=== PATIENT | female | born 1955 | race Caucasian/White ===

== ENCOUNTER 2025-01-03 11:45 | Outpatient (CLI) | payer BC, SELFPAY ==
--- NOTE | ~2025-01-03 | US_ITS ---
EXAMINATION: US pelvic complete INDICATION: Postmenopausal bleeding Comparison:No prior studies for comparison. TECHNIQUE: Multiple transabdominal and endovaginal sonographic images of the pelvis performed. FINDINGS: The uterus measures 8.8 x 3.8 x 4.9 cm. There is a small hyperechoic 1.6 cm mass, likely pa rtially calcified fibroid. There is a second 1.3 cm hyperechoic mass also likely partially calcified fibroid. The endometrial complex measures 3.6 mm. The right ovary is not visualized. Left ovary contains follicular changes measuring 2.3 x 4.4 x 1.6 c m. There is no free fluid in the pelvis. There are no abnormal masses seen on either side. IMPRESSION: 1. Hyperechoic masses, largest measuring 1.6 cm within the uterine myometrium, consistent with partia lly calcified fibroids. Reviewed, dictated and finalized at location A. IMPRESSION: 1. Hyperechoic masses, largest measuring 1.6 cm within the uterine myometrium, consistent with partially calcified fibroids.
== END 2025-01-03 11:46 | disposition home or self-care (01) ==
PROVIDERS: PCP Internal Medicine; Visit Provider Obstetrics & Gynecology Gynecology
DX: N95.0 Postmenopausal bleeding (principal)
CPT/HCPCS: 76856

== ENCOUNTER 2025-01-24 02:15 | Day surgery (SDC) | payer BC, SELFPAY ==
[2025-01-14 15:37] VITALS: BMI 25.0
--- NOTE | 2025-01-14 15:56 | PC.NURSE ---
Addendum entered by Chantal Moreno RN 01/17/25 10:08: TYPO/CORRECTION-HOLD ALL VITAMINS/SUPPLEMENTS 3 DAYS PRE-OP, LAST DOSE 01/20/25. PT RELAYS UNDERSTANDING. Original Note: Report to the Outpatient Waiting Room, entrance under the green pavilion located off [facility], at time _7:00AM_ on date__01/24/25_. Planned Procedure Time: _9:00AM__.? Time changes happen often and if your time is changed the preop area will call you the afternoon before. - You and your visitor will be asked to self-screen and do not enter if you have any COVID symptoms. Please call surgeon if you need to reschedule. - A mask is optional within the hospital at this time. Patients may have clear liquids (water, carbonated beverages, clear teas, apple juice) until 3 hours prior to surgery (6:00AM) with a maximum of 20 ounces. - No food from midnight until time of surgery and no smoking, or chewing tobacco (or any form of nicotine). No chewing gum, candy or mints. Take only the following medications with a SIP of water on the morning of surgery: ____AMLODIPINE DO NOT STOP ANY OF YOUR OTHER PRESCRIPTION MEDICATIONS PRIOR TO SURGERY EXCEPT THE FOLLOWING Hold all vitamins and supplements for 3 days per anesthesiologist.-LAST DOSE 01/30/25 Please no make-up, nail ukrainian, hairspray, perfume, deodorant, or body powder the day of surgery.? No jewelry (including any body piercings) or valuables the day of surgery, leave them at home.? Please take a shower or bath the night before, or the morning of, surgery with an antibacterial soap.? Wear comfortable, loose fitting clothing.? - Jewelry must be removed prior to entering the operating room.? Rings and piercings that are not removed may be cut off. - The hospital will not accept responsibility for valuables.? - Please leave all valuables, including medications, at home the day of surgery. If you are going home after surgery, a licensed day haul or farm charter bus driver must drive you home.? - NO public transportation without another adult if you receive anesthesia. - We recommend that an adult stay with you for 24 hours following discharge. - We also recommend that you do not drive, make important decision, drink alcoholic beverages, or take any drugs that were not prescribed by your health care provider for at least 24 hours after your discharge time. Follow any additional instructions given to you from your surgeon. Telephone instructions given to PATIENT and asked if any additional questions and then verbalized understanding. Patient advised to call surgeon office or pre surgery nurse liaison [phone] if any additional questions.
[2025-01-24] VITALS (10 sets, daily range): BP systolic 73–133; BP diastolic 32–60; PULSE 40–60; RESP 14; TEMP 36.7; O2SAT 96–100; BMI 25.1
--- OUTSIDE RECORDS SUMMARY | 2025-01-24 02:19 | XMS_ITS | Encounter Summary ---
Author Organization [facility] Address 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
--- OUTSIDE RECORDS SUMMARY | 2025-01-24 02:19 | XMS_ITS | Encounter Summary ---
Author Organization [facility] Address [address] [place] [address] Care Team Providers Care Blacksmith Helper Name Role Phone Charlette Madrigal MD Primary Care Provider [phone] Page Ge MD Unavailable [phone] Elif Cooper MA Unavailable + [phone] Shawn Patel MD Unavailable [phone] Lux Valiente OD Unavailable [phone] Jose Alberto Max MD Unavailable [phone] Encounter Details Date Type Department Care Team (Late st Contact Info) Description 04/28/2024 Orders Only [facility] Health Information Management [address] [place] [id number] Scanning, Provider Social History Tobacco Use Types Packs/Day Years Used Date Smoking Tobacco: Never Passive Smoke Exposure: Never Smokeless Tobacco: Never AUDIT-C Answer Date Recorded Q1: How often do you have a drink containing alcohol? Never 05/12/2023 Q2: How many drinks containi ng alcohol do you have on a typical day when you are drinking? Patient does not drink Q3: How often do you have si x or more drinks on one occasion? 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, teaching Not on file Not on file Not on fi le documented as of this encounter Plan of Treatment Not on file documented as of this encounter Procedures Procedure Name Priority Date/Time Associated Diagnosis Comments SCAN - LABS 04/28/2024 documented in this encounter Results * SCAN - LABS (04/28/2024) us Provider Scanning Final Result documented in this encounter Visit Diagnoses Not on filedocumented in this encounter Care Teams Blacksmith Helper Relationship Specialty Start Date End Date Charlette Madrigal MD [address] [address] PCP - General Internal Medicine 07/04/22 Page Ge MD [address] [id number] Referring Physician Gynecology 07/04/22 Elif Cooper MA [address] [place] [address] Audiology 07/04/22 Shawn Patel MD [address] [place] [address] Referring Physician Dermatology 07/04/22 Lux Valiente OD [address] [place] [address] Ophthalmology 07/04/22 Jose Alberto Max MD [address] [place] [address] Referring Physician Ophthalmology 12/09/22 documented as of this encounter
--- OUTSIDE RECORDS SUMMARY | 2025-01-24 02:19 | XMS_ITS | Clinical Summary ---
Author Organization [facility] Address [address] [place] [address] Phone Care Team Providers Care Manager Medicare Marketing Name Role Phone Nancy Madrigal MD Primary Care Provider [phone] Page Ge MD Unavailable [phone] Elif Cooper MA Unavailable [phone] Shawn Patel MD Unavailable Lux Valiente OD Unavailable Brown Max MD Unavailable [phone] Allergies Active Allergy Reactions Criticality Noted Date Comments Adhesive Rash Medium 07/06/2024 medipore Latex Hives Medium 10/21/2021 Tramadol Stomach upset Low 07/04/2022 Medications aspirin 81 mg enteric coated tablet Take 1 tablet (81 mg total) by mouth every other day Active estradioL (ESTRACE) 0.5 mg tablet Take 1 tablet (0.5 mg total) by mouth daily 07/21/19 22 Active medroxyPROGESTE Mike (PROVERA) 2.5 mg tablet Take 1 tablet (2.5 mg total) by mouth daily 07/21/19 22 Active nitroglycerin (NITROSTAT) 0.[address] 1 tablet (0.4 mg total) under the tongue every 5 (five) minutes as needed 10/23/19 Active valACYclovir (VALTREX) 500 mg tabletIndicatio ns:Chronic Suppression Take 1 tablet (500 mg total) by mouth daily 09/05/19 Active UNABLE TO FIND Pectasol Activ e UNABLE TO FIND Bone up Activ e cholecalciferol (Vitamin D3) 5,000 unit tablet daily Active ascorbic acid (VITAMIN C) 250 mg tablet Take 1 tablet (250 mg total) by mouth daily Active acidophilus-pec tin, citrus 100 million cell-10 mg capsule Take by mouth Active coenzyme Q10 100 mg capsule Take 1 capsule (100 mg total) by mouth daily Active calcium carb,gluc-mag gluc,ox 500 mg calcium- 250 mg tablet Take by mouth Active atorvastatin (LIPITOR) 10 mg tabletIndicatio ns:Hypercholest erolemia Take 1/2 (one-half) tablet by mouth once daily 45 tablet 2 08/09/19 25 Active amLODIPine (NORVASC) 5 mg tabletIndicatio ns:Hypertension , essential Take 1 tablet by mouth once daily 90 tablet 2 08/09/19 25 Active telmisartan (MICARDIS) 20 mg tabletIndicatio ns:Hypertension , essential Take 1 tablet (20 mg total) by mouth daily 90 tablet 3 01/18/20 25 026 Active Linzess 145 mcg capsule Take 1 capsule (145 mcg total) by mouth daily 06/03/20 22 025 Discontinued(Th erapy completed) estradioL (ESTRACE) 0.01 % (0.1 mg/gram) vaginal cream INSERT 1 GRAM VAGINALLY 2 TIMES PER WEEK 03/22/20 24 025 Discontinued Active Problems Problem Noted Date Diagnosed Date Endometrial thickening on ultrasound 01/17/2025 Assessment & Plan (01/17/2025 4:19 PM CDT): Waiting on scheduled D and C 01/24/[address] Ge Has 2 fibroids on US, read report from [facility] Prinzmetal angina 01/17/2025 Overview (01/17/2025): Cardiac CT score 0.0 in 2022 EKG 06/2024 Assessment & Plan (01/17/2025 4:25 PM CDT): Cardiac CT score 0.0 in 2022 EKG 06/2024 Cont amlodipine therapy Stress induced only Colon cancer screening 07/07/2024 Screening for colon cancer 05/20/2024 Decreased renal function 05/19/2024 Assessment & Plan (05/19/2024 9:56 AM FURNITURE RESTORER): Lowering GFR, new problem Normal UA no proteinuria Check cystatin c Recurrent genital HSV (herpes simplex virus) inf ection 12/09/2022 Overview (12/09/2022): Recurrent genital flare-ups when under stress mostly or sleep deprived. Previously prescription was managed by her welfare centre manager would like for me to take over. Assessment & Plan (12/09/2022 6:59 PM CDT): Previously prescription was managed by her welfare centre manager would like me to take over. Valtrex prn, takes 500 mg daily prophylaxis. Patient can take 500 mg t.i.d. for 3-5 days p.r.n. flare-ups. Stable Annual physical exam 07/11/2022 Assessment & Plan (05/19/2024 9:48 AM FURNITURE RESTORER): Wear seatbelts. Use sunscreen. Discussed healthy diet and disease prevention. Recommend moving towards a plant based diet. Discussed importance of scheduling recommended screening tests. Discussed importance of regular physical examinations for health maintenance. Discussed importance of a living will, advanced directives and establishing or updating healthcare power of insurance defense attorney document and providing our office with a copy. Assessment & Plan (05/11/2023 9:54 PM FURNITURE RESTORER): Wear seatbelts. Use sunscreen. Discussed healthy diet and disease prevention. Recommend moving towards a plant based diet. Discussed importance of scheduling recommended screening tests. Discussed importance of regular physical examinations for health maintenance. Discussed importance of a living will, advanced directives and establishing or updating healthcare power of insurance defense attorney document and providing our office with a copy. Assessment & Plan (07/11/2022 9:51 AM FURNITURE RESTORER): prevnar 20 due, given today Annual labs due Reviewed previous labs and diagnostic test results. Chronic medical problems evaluated and management plans discussed with the patient. Prescription medications, supplements, vitamins and immunizations reviewed. Wear seatbelts. Use sunscreen. Discussed healthy diet and disease prevention. Recommend moving towards a plant based diet. Discussed importance of scheduling recommended screening tests. Discussed importance of regular physical examinations for health maintenance. Discussed importance of a living will, advanced directives and establishing or updating healthcare power of insurance defense attorney document and providing our office with a copy. Mixed conductive and sensorineural hearing loss 07/07/2022 Overview (07/07/2022): bilat hearing aids Hypercholesterolemia 07/04/2022 Overview (07/04/2022): Statin therapy Assessment & Plan (05/19/2024 9:59 AM FURNITURE RESTORER): At goal with only 5 mg of atorvastatin daily Cont heart healthy diet Controlled. Assessment & Plan (12/09/2022 3:56 PM CDT): Follow step 1 low cholesterol diet/ Mediterranean Diet. Report if having problems with daily nausea or extreme muscle aches and weaknesses from the chol medication Monitor lipid levels on a regular basis as discussed and planned. Recommend to continue with current Rx medication to lower and control cholesterol Controlled. Assessment & Plan (07/07/2022 10:53 AM FURNITURE RESTORER): Cont statin therapy Ff low chol diet Exercise for cv health Monitor lipids, alt, cpk Hypertension, essential 07/04/2022 Overview (01/17/2025): Cardiac CT score 0.0 in 2022 EKG 06/2024 Assessment & Plan (01/17/2025 4:13 PM CDT): BP been fluctuating some Cont to monitor BP High calcium diet should help her BP she is taking BP amlodipine 5 mg daily Add telmisartan low dose once daily Add more activity, walk 20 mins 3x a week for better BP regulation Avoid etoh, rarely drinks at this time Assessment & Plan (05/19/2024 9:58 AM FURNITURE RESTORER): Bp now well controlled Only needing 5mg amlodpine daily Cont rx med Remain off asa therapy no benefit cardiac CT score is 0% Follow low sodium DASH Diet. Cont to Exercise regularly for CV health and weight loss. Achieve or Maintain normal BMI/Weight. Continue Rx medication. BP is controlled and stable. Assessment & Plan (12/09/2022 3:56 PM CDT): Bp now well controlled Only needing 5mg amlodpine daily Cont rx med Stop the asa therapy no benefit cardiac CT score is 0% Follow low sodium DASH Diet. Cont to Exercise regularly for CV health and weight loss. Achieve or Maintain normal BMI/Weight. Continue Rx medication. BP is controlled and stable. Assessment & Plan (07/07/2022 10:53 AM FURNITURE RESTORER): New onset bp retaken here elevated Concerning for signs of heart dse, at risk for stroke Start amlodipine 2.5 mg daily Cont to monitor BP bid Start to Exercise regularly Follow low sodium DASH Diet. Exercise regularly for CV health Maintain normal BMI/Weight. Report if BP consistently over 160/90 or under 90/60 and dizzy and LH. Rosacea 07/04/2022 Overview (07/04/2022): Dr Lockwood Sacro-iliac pain 07/04/2022 Overview (01/17/2025): Tried chiro and meds Resolved after PT and dry needling 2023 Assessment & Plan (05/19/2024 10:15 AM FURNITURE RESTORER): Resolved after PT and needling 2023 Assessment & Plan (12/09/2022 4:04 PM CDT): Flaring up more lately been ongoing for over 1 yr Stretching helps Needs PT likely L spine and pelvis xray attn SI jt Assessment & Plan (07/07/2022 10:54 AM FURNITURE RESTORER): Right side Plans to do exercises and stretching Cont Michael and Lobito exercises on You-tube Call if worsens for PT referral Chronic idiopathic constipation 07/04/2022 Overview (12/09/2022): Previously managed by her welfare centre manager. Patient would like me to take over prescription for Linzess therapy Assessment & Plan (05/19/2024 10:16 AM FURNITURE RESTORER): Cont linzess therapy prn helping Hydrate well Avoid straining due to cystocele and rectocoele Cont High-fiber diet. Assessment & Plan (12/09/2022 6:58 PM CDT): Previously managed by her welfare centre manager. Patient would like me to take over prescription for the Linzess therapy. Cont linzess therapy helping Hydrate well Avoid straining due to cystocele and rectocoele High-fiber diet. Assessment & Plan (07/04/2022 10:51 AM FURNITURE RESTORER): Doing better on linzess therapy Hydrate well Cont same regimen Cystocele with rectocele 07/04/2022 Overview (05/19/2024): Dr Ge OVEN TECHNICIAN Doing Kegels Assessment & Plan (12/09/2022 7:00 PM CDT): Currently has a knob pessary in place. Helping. Continue under welfare centre manager care. Assessment & Plan (05/19/2024 9:51 AM FURNITURE RESTORER): >>ASSESSMENT AND PLAN FOR CYSTOCELE WITH RECTOCELE WRITTEN ON 07/04/2022 10:49 AM BY NANCY MADRIGAL MD Stable Cont to wear a pad Cont linzess Avoid constipation and straining Continue Pelvic floor exercises >>ASSESSMENT AND PLAN FOR RECTOCELE WRITTEN ON 07/04/2022 10:48 AM BY NANCY MADRIGAL MD Cont linzess Avoid constipation and straining Continue Pelvic floor exercises Benign essential tremor 07/04/2022 Overview (05/19/2024): Observation famhx father and sister with same May benefit from Focused Ultrasound wave treatment to brain Assessment & Plan (05/19/2024 10:00 AM FURNITURE RESTORER): May benefit from Focused Ultrasound wave treatment [facility] at [facility] if worsens for tremor non parkinson's Assessment & Plan (07/07/2022 10:52 AM FURNITURE RESTORER): Managing well, R hand Not on meds at this time Wants to observe for now, machohx, father Resolved Problems Problem Noted Date Diagnosed Date Resolved Date Chest pain 10/21/2021 07/04/2022 Encounters Date Type Department Care Team Description 01/17/2025 3:00 PM CDT Office Visit [facility] [address] [place] [phone] Nancy Madrigal MD Hypertension, essential (Primary Dx); Endometrial thickening on ultrasound; Prinzmetal angina 01/03/2025 Orders Only [facility] Health Information Management [address] [place] [address] Scanning, Provider 12/29/2024 Telephone [facility] [address] [place] [phone] Nancy Madrigal MD Medical Question/Miscellaneo us 11/26/2024 Telephone [facility] [address] [place] [phone] Nancy Madrigal MD 10/25/2024 Telephone [facility] [address] [place] [phone] Nancy Madrigal MD Referral Request 10/25/2024 Telephone [facility] [address] [place] [phone] Nancy Madrigal MD Additional Services Or Orders from Last 3 Months Immunizations Immunization Administration Dates Next Due Influenza, Quadrivalent, Beatris l Culture-based MDCK, Preservative Free, Antibiotic Free, Intramuscular 03/19/2018 Influenza, Quadrivalent, Hig h Dose, Preservative Free, Intrr 02/04/2023,02/04/2022,04/10/2021,04/03,03/29/2020 Influenza, Quadrivalent, Spl it, Preservative Free, Intramuscular 02/05/2017 Influenza, Trivalent, High D ose, Split, Preservative Free, Intramuscular 02/12/2024 Pneumococcal Conjugate PCV 13 04/03/2020 Pneumococcal Conjugate Pcv20 07/04/2022 Tdap 12/09/2022 ZOSTER LIVE 02/05/2017 ZOSTER Recombinant 04/29/2023,02/04/2023 Surgical History Surgery Date Site/Laterality Comments STAPEDECTOMY Bilateral 1 left , [address] Bimal Kidd Left Ear CHOLECYSTECTOMY 06/16/1999 - 06/15/2000 Dr De Leon CATARACT EXTRACTION EXTRACAPSULAR W/ INTRAOCULAR LENS IMPLANTATION 12/10/[address] Max, 12/10/2022 OS, 12/24/2022 OD VAGINAL DELIVERY X1 DILATION AND CURETTAGE OF UTERUS 06/16/2012 - 06/15/2013 Dr Johnson Medical History Medical History Date Comments Angina at rest resolved- no vandana ronaldo ongoing Hyperlipidemia Sacro-iliac pain 07/04/2022 Tried chiro and meds Resolved after PT and needling 2023 Chronic constipation Hypertension Rectocele second degree Family History Medical History Relation Name Comments Kidney cancer Brother Cirrhosis Father Essential Tremor Father Prostate cancer Maternal Grandmother Lung cancer Mother Breast cancer Mother's Sister Essential Tremor Sister Relation Name Status Comments Brother Alive Father Maternal Grandmother Alive Mother Mother's Sister Alive Sister Alive Social History Tobacco Use Types Packs/Day Years Used Date Smoking Tobacco: Never Passive Smoke Exposure: Never Smokeless Tobacco: Never Tobacco Cessation:Counseling Given: Not Answered AUDIT-C Answer Date Recorded Q1: How often do you have a drink containing alcohol? Monthly or less 07/07/2024 Q2: How many drinks containi ng alcohol do you have on a typical day when you are drinking? Patient does not drink Q3: How often do you have si x or more drinks on one occasion? Never 07/07/2024 PHQ-2 Answer Date Recorded PHQ-2 Total Score (If total score is 3 or more points, staff should administer the PHQ-9) 0 01/17/2025 PHQ-9 Answer Date Recorded PHQ-9 Total Score 1 05/19/2024 Personal Safety Answer Date Recorded Have you ever been in or are you currently in a harmful physical or emotional relationship or is someone making you feel afraid or unsafe? 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, teaching Not on file Not on file Not on fi le Obstetrics History Last Filed Vital Signs Vital Sign Reading Time Taken Comments Blood Pressure 124/64 01/17/2025 3:01 PM CDT Pulse 60 01/17/2025 3:01 PM CDT Temperature 36.4 C (97.5 F) 01/17/2025 3:01 PM CDT Respiratory Rate 16 07/07/2024 12:4 5 PM FURNITURE RESTORER Oxygen Saturation 99% 01/17/2025 3:01 PM CDT Inhaled Oxygen Concentration - - Weight 64.8 kg (142 lb 12.8 oz) 01/17/2025 3:01 PM CDT Height 160 cm (5' 3) 01/17/2025 3:01 PM CDT Body Mass Index 25.3 01/17/2025 3:01 PM CDT Plan of Treatment Health Maintenance Due Date Last Done Comments Hepatitis B Screening 1973 Covid-19 Vaccine (2023-07 5 season) 2024 02/12/2024, 03/14/2023, 03/04/2022, Additional history exists Influenza Vaccine (#1) 2025 , 02/04/2023, 02/04/2022, Additional history exists Well Visit 65+ 05/19/2025 05/19/2024, 04/17, 07/04/2022 Fall Risk Assessment 07/07/2025 07/07/2024, 05/19/2024, 05/12/2023, Additional history exists Breast Cancer Screening-Mammogram 11/26/2025 11/26/2024, 11/10/2024, 11/10/2024, Additional history exists Depression Screening 01/17/2026 01/17/2025, 05/19/2024, 05/19/2024, Additional history exists Osteoporosis Screening-Bone Density Scan 12/19/2026 12/19/2021, 03/29/2015 DTaP/Tdap/Td Vaccine (2 - Td or Tdap) 12/09/2032 12/09/2022 Colon Cancer Screening-Colonoscopy 07/07/2034 07/07/2024, 12/02/2014 Hepatitis C Screening Completed 07/04/2022 Pneumococcal vaccine 65+ Completed 07/04/2022, 03/16 Zoster Vaccine Completed 04/29/2023, 01/15, 02/05/2017 Colon Cancer Screening-CT Colonography Discontinued 07/07/2024, 12/02/2014 Colon Cancer Screening-DNA Stool Discontinued 07/07/19, 12/02/2014 Colon Cancer Screening-FIT Discontinued 07/07/2024, Colon Cancer Screening-Sigmoidoscopy Discontinued 07/07/2024, 12/02/2014 Medical Devices Implanted Type Area Face Man Device Identifier Shelf Expiration Date Model / Serial / Lot Stapedectomy Bilateral: Ear Procedures Procedure Name Priority Date/Time Associated Diagnosis Comments SCAN - RADIOLOGY/IMAGING 01/03/2025 MAMMOGRAPHY Routine 11/26/2024 2:17 PM CDT COLONOSCOPY 07/07/2024 11:46 AM FURNITURE RESTORER HEPATITIS C ANTIBODY Routine 07/04/2022 1:02 PM FURNITURE RESTORER DEXA AXIAL SKELETON BONE DENSITY 1 OR MORE SITES Routine 03/29/2015 1:31 PM CDT from Last 3 Months or Most Recently Relevant to Health Maintenance Results * SCAN - RADIOLOGY/IMAGING (01/03/2025) Anatomical Region Laterality Modality Other us Provider Scanning Final Result * MAMMOGRAPHY (11/26/2024 2:17 PM CDT) Mammography Normal [facility] Provider MD HEALTH MAINTENANCE Final Result * Colonoscopy (07/07/2024 11:46 AM FURNITURE RESTORER) Anatomical Region Laterality Modality Other Narrative Procedure Note Neri Reynoso MD - 07/07/2024 11:46 AM CST [facility] GI ENDOSCOPY Patient Name: Ayanna Beltran Procedure Date: 07/07/2024 11:46 AM Date of : 1955 Admit Type: Outpatient Age: 69 Gender: Female Attending MD: Neri Reynoso MD Room: [facility] ENDOSCOPY ROOM 05 Note Status: Finalized Procedure: Colonoscopy Indications: Screening for colorectal malignant neoplasm,average risk Referring MD: Providers: Neri Reynoso MD Medicines: See the Anesthesia note for documentation of the administered medications Complications: No immediate complications. Estimated Blood Loss: Estimated blood loss was minimal. Procedure: Pre-Anesthesia Assessment: - Prior to the procedure, a History and Physicalwas performed, and patient medications and allergieswere reviewed. The risks and benefits of the procedureand the sedation options and risks were discussed withthe patient. All questions were answered and informed consent was obtained. Patient identification and proposed procedure were verified. After reviewingthe risks and benefits, the patient was deemed in satisfactory condition to undergo the procedure.The anesthesia plan was to use monitored anesthesiacare (MAC). Immediately prior to administration of medications, the patient was re-assessed foradequacy to receive sedatives. The heart rate, respiratory rate, oxygen saturations, blood pressure, adequacyof pulmonary ventilation, and response to care were monitored throughout the procedure. The physical status of the patient was re-assessed after the procedure. The benefits, risks and alternatives of theprocedure and sedation were discussed and informed consentwas obtained. All questions were answered. Please referto the signed informed consent document in the medical record. The scope was passed under direct vision.The [id number]-[id number] colonoscope was introduced through theanus and advanced to the cecum, identified byappendiceal orifice and ileocecal valve. The colonoscopy was performed without difficulty. The patient tolerated the procedure well. The quality of the bowel preparation was good. Scope insertion time was 8 minutes. Scope withdrawal time was 14 minutes. Prep was administered in a split dose. Findings: The perianal and digital rectal examinations were normal. Mild diverticulosis was found in the sigmoid colon. Internal hemorrhoids were found. The hemorrhoids were small. Impression: - Diverticulosis in the sigmoid colon. - Internal hemorrhoids. - No specimens collected. Recommendation: - Resume previous diet today. - Discharge patient to home. - Increase fiber. - Patient has a contact number available for emergencies. The signs and symptoms of potential delayed complications were discussed with thepatient. Return to normal activities tomorrow. Written discharge instructions were provided to thepatient. - Repeat colonoscopy in 10 years for screening purposes. - I would be happy to see you in my GI clinic ifyou have further questions or concerns or if symptoms progress Neri Reynoso MD 07/07/2024 12:24:56 PM Number of Addenda: 0 Note Initiated On: 07/07/2024 11:46 AM Recognized by the [employer] for promoting quality in endoscopy us Neri Reynoso MD ENDOSCOPY PROCEDURES [place] Result * Hepatitis C antibody (07/04/2022 1:02 PM FURNITURE RESTORER) Hep C Ab <0.1 0.0 - 0.9 s/co ratio [facility] - Comment: Negative: < 0.8 Indeterminate: 0.8 - 0.9 Positive: > 0.9 HCV antibody alone does not differentiate between previous resolved infection and active infection. The CDC and current clinical guidelines recommend that a positive HCV antibody result be followed up with an HCV RNA test to support the diagnosis of acute HCV infection. [facility] offers Hepatitis C Virus (HCV) RNA, Diagnosis, NILES (049702) and Hepatitis C Virus (HCV) Antibody with reflex to Quantitative Real-time PCR ([id number]). 07/04/2022 1:02 PM FURNITURE RESTORER 07/04/2022 Narrative [facility] - 07/05/2022 7:36 AM FURNITURE RESTORER Performed at: - [address] [id number] Break Off Worker: Ismael Garrido PhD, Phone: [phone] us Nancy Madrigal MD LAB MICROBIOLOGY - GENERAL O RDERABLES Final Result [facility] - * Dexa Axial Skeleton Bone Density 1 or 2 Site (03/29/2015 1:31 PM CDT) Anatomical Region Laterality Modality Body N/A Radiographic Lexus ging 03/29/2015 1:31 PM CDT Impressions 03/29/2015 2:40 PM CDT Normal bone mineral density. Bone mineral density: Normal (T-score above or = -1.0) Low bone mass (T-score between -1.0 and -2.5) replaces the previously used term osteopenia Osteoporosis (T-score = or below -2.5) Medical evaluation for secondary causes of low bone mineral density may be appropriate. FRAX is a World Health Organization validated fracture risk assessment tool that calculates a person's 10 year probability of a major osteoporosis related fracture and hip fracture. According to the National Osteoporosis Foundation guidelines, postmenopausal women and men age 50 or older with low bone mass and a 10 year probability of a major osteoporosis related fracture = or greater than 20% or a 10 year probability of a hip fracture = or greater than 3% should be considered for treatment. For further information, including treatment recommendations, please refer to the 2013 ISCD Official Positions (http://www.iscd.org) and the NOF's Clinician's Guide to Prevention and Treatment of Osteoporosis (http://www.nof.org/professionals/clinical-guidelines) THIS IS AN ELECTRONICALLY VERIFIED REPORT 03/29/2015 2:36 PM: Torin Schofield M.D. Torin Schofield M.D. NH:david 02:36 PM 02:36 PM [facility] [EOD] Narrative 03/29/2015 2:40 PM CDT HISTORY: 60 year old postmenopausal female. Current Height: 62.5 inches Maximum Height: 63 inches Weight: 138 pounds RISK FACTORS: History of finger fracture as an adult. She has taken hormone-replacement therapy, multivitamin, vitamin D and calcium. She does not regularly perform weightbearing exercise. She regularly consumes dairy products and caffeinated beverages. COMPARISON(S): None HOTEL SERVICES SUPERVISOR/MODEL: [employer] (S/N [id number]) FINDINGS: AP lumbar spine L1-L4 Total BMD is 0.997 g/kd8P-wobkf is -0.5 Left Hip Total BMD is 0.927 g/po0G-gfmyt is -0.1 Neck BMD is 0.762 g/mf2P-xqeao is -0.8 Procedure Note Provider, MD Katrin - 11/01/2020 HISTORY: 60 year old postmenopausal female. Current Height: 62.5 inches Maximum Height: 63 inches Weight: 138 pounds RISK FACTORS: History of finger fracture as an adult. She has taken hormone-replacement therapy, multivitamin, vitamin D and calcium. Shedoes not regularly perform weightbearing exercise. She regularly consumesdairy products and caffeinated beverages. COMPARISON(S): None HOTEL SERVICES SUPERVISOR/MODEL: [employer] (S/N [id number]) FINDINGS: AP lumbar spine L1-L4 Total BMD is 0.997 g/cv5T-wbeoc is -0.5 Left Hip Total BMD is 0.927 g/gh6O-iumlv is -0.1 Neck BMD is 0.762 g/dh3H-vfqru is -0.8 IMPRESSION: Normal bone mineral density. Bone mineral density: Normal (T-score above or = -1.0) Low bone mass (T-score between -1.0 and -2.5) replaces the previously used term osteopenia Osteoporosis (T-score = or below -2.5) Medical evaluation for secondary causes of low bone mineral density may be appropriate. FRAX is a World Health Organization validated fracture risk assessmenttool that calculates a person's 10 year probability of a major osteoporosisrelated fracture and hip fracture. According to the National OsteoporosisFoundation guidelines, postmenopausal women and men age 50 or older with low bonemass and a 10 year probability of a major osteoporosis related fracture = or greater than 20% or a 10 year probability of a hip fracture = or greaterthan 3% should be considered for treatment. For further information, including treatment recommendations, please referto the 2013 ISCD Official Positions (http://www.iscd.org) and the NOF's Clinician's Guide to Prevention and Treatment of Osteoporosis (http://www.nof.org/professionals/clinical-guidelines) THIS IS AN ELECTRONICALLY VERIFIED REPORT 03/29/2015 2:36 PM: Torin Schofield M.D. Torin Schofield M.D. NH:david 02:36 PM 02:36 PM BM [EOD] Kenji Johnson MD IMG DXA PROCEDURES Final Re sult from Last 3 Months or Most Recently Relevant to Health Maintenance Insurance BCBS FEDERAL Member Subscriber Plan / Payer (Ef fective 2013-Present) Name:Ayanna Beltran Relation to Subscriber:Spouse Name:BROWN BELTRAN Date of :1966 Address: [address] [place] [address] Payer ID:[id number] (NAIC) Group ID:[id number] Type:[facility] Address: [address] [place] [id number] MEDICARE Care Teams Manager Medicare Marketing Relationship Specialty Start Date End Date Nancy Madrigal MD [address] [place] [id number] PCP - General Internal Medicine 07/04/22 Page Ge MD [address] [place] [address] Referring Physician Gynecology 07/04/22 Elif Cooper MA [address] [place] [address] Audiology 07/04/22 Shawn Patel MD [address] [address] Referring Physician Dermatology 07/04/22 Lux Valiente OD [address] [place] [address] Ophthalmology 07/04/22 Brown Max MD [address] [place] [address] Referring Physician Ophthalmology 12/09/22
--- OUTSIDE RECORDS SUMMARY | 2025-01-24 02:19 | XMS_ITS | Clinical Summary ---
Author Organization [facility] Address [address] [place] [address] Care Team Providers Care Resident Programs Assistant Name Role Phone Charlette Madrigal MD Primary Care Provider [phone] Allergies Active Allergy Reactions Criticality Noted Date Comments Latex Hives 10/21/2021 Medications estradiol 0.5 MG tablet Take 0.5 mg by mouth nightly at bedtime. 2 Active medroxyPROGESTE Mike 2.5 MG tablet Take 2.5 mg by mouth nightly at bedtime. 2 Active valACYclovir 500 MG tablet Take 500 mg by mouth nightly at bedtime. 2 Active atorvastatin 10 MG tablet Take 5 mg by mouth nightly at bedtime. Active aspirin EC (ASPIRIN EC) 81 MG tablet Take 81 mg by mouth every other day. Takes in evening every other day Active Multiple Vitamins-Minera ls (MULTIVITAMIN ADULT, MINERALS, OR) Take 1 tablet by mouth daily. Active nitroglycerin 0.[address] 1 tablet (0.4 mg total) under the tongue every 5 (five) minutes as needed for Chest Pain. Take up to 3 in one setting. After two doses, if pain still persists, go to Emergency room 90 tablet 2 Active Active Problems Problem Noted Date Diagnosed Date Chest pain 10/21/2021 Encounters Date Type Department Care Team Description 11/10/2024 12:20 PM CDT - 11/10/2024 11:59 PM CDT Hospital Encounter [facility] [address] [place] [address] Page Ge MD Discharge Disposition: Home or Self Care (Routine Discharge) 11/10/2024 Travel from Last 3 Months Immunizations Immunization Administration Dates Next Due MODERNA COVID-19 (12+) MRNA, LNP-S, PF, 100 MCG/ 0.5 ML DOSE 09/01/2020,08/04/2020 Family History Medical History Relation Comments Breast Cancer Other Breast Cancer Paternal Aunt Relation Status Comments Other Alive Paternal Aunt Social History Tobacco Use Types Packs/Day Years Used Date Smoking Tobacco: Never Smokeless Tobacco: Never Alcohol Use Standard Drinks/Week Comments Never 0 (1 standard drink = 0.6 oz pur e alcohol) Comments No Sex and Gender Information Value Date Recorded Sex Assigned at 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 Sex Female 9:54 AM CDT Gender Identity Not on file Sexual Orientation Not on file Last Filed Vital Signs Vital Sign Reading Time Taken Comments Blood Pressure 127/62 10/22/2021 7:20 AM CDT Pulse 55 10/22/2021 7:20 AM CDT Temperature 36.6 C (97.9 F) 10/22/2021 7:20 AM CDT Respiratory Rate 14 10/22/2021 7:20 AM CDT Oxygen Saturation 98% 10/22/2021 7:20 AM CDT Inhaled Oxygen Concentration - - Weight 63.9 kg (140 lb 12.8 oz) 10/22/2021 3:33 AM CDT Height 160 cm (5' 3) 10/21/2021 8:26 AM CDT Body Mass Index 24.94 10/21/2021 8:26 AM CDT Plan of Treatment Health Maintenance Due Date Last Done Comments Colorectal Cancer Screening Colonoscopy (10 Years) 1955 Hepatitis C 1973 RSV Immunization or 60+ Years (1 - Risk 60-74 years 1-dose series) 2015 COVID-19 Vaccine ( season) 2024 09/01/2020, 08/04/2020 Mammogram Screening 11/10/2026 11/10/2024, 10/29/2023, 08/16/2022, Additional history exists DTaP, Tdap and Td Vaccines (2 - Td or Tdap) 12/09/2032 12/09/2022 Dexa Scan (General) Completed 12/19/2021, 5 Pneumococcal Vaccine: 50+ Years Completed 07/04/2022, 04/03/2020 Zoster Vaccines Completed 04/29/2023, 01/15, 02/05/2017 Meningococcal B Vaccine Aged Out No l onger eligible based on patient's age to complete this topic Meningococcal Vaccine Aged Out No vandana ronaldo eligible based on patient's age to complete this topic RSV Immunizations Under 20 Months Aged Out No longer eligible based on patient's age to complete this topic Goals Goal Patient Goal Type Associated Problems Recent Progress Patient-Stated? Author Patient will return to prior living situation and remain independent in ADLs upon discharge from hospital General Bel Sarmiento RN Procedures Procedure Name Priority Date/Time Associated Diagnosis Comments MG SCREENING W EL JUANJOSE DIGI Routine 11/10/2024 1:13 PM CDT Encounter for screening mammogram for malignant neoplasm of breast BONE DENSITY/DEXA Routine 12/19/2021 11: 20 AM CDT Postmenopausal from Last 3 Months or Most Recently Relevant to Health Maintenance Results * MG SCREENING W EL JUANJOSE DIGI (11/10/2024 1:13 PM CDT) Anatomical Region Laterality Modality Breast Bilateral Mammography 11/10/2024 2:54 PM CDT Impressions 11/10/2024 2:57 PM CDT IMPRESSION: No suspicious mammographic findings. Recommendation: 1. Routine Screening, Bilateral Assessment: ACR BI-RADS 2 - BENIGN FINDING(S) Ordered By: PAGE GE Interpreted By: Donavan Almeida MD, 11/10/2024 2:54 PM Narrative 11/10/2024 2:57 PM CDT [facility] [address] [place] [address] Examination: Screening bilateral mammogram Exam Date: 11/10/2024 12:56 PM Clinical history: Routine screening. Comparison: 10/29/2023, 08/16/2022 Technique: Digital screening mammography of both breasts was performed. Breast tomosynthesis acquisitions were obtained and reviewed. This study was read with the assistance of a computer-aided detection system. Tissue density: The breasts are heterogeneously dense, which may obscure small masses. Findings: No suspicious masses, malignant appearing calcifications, skin thickening or other abnormalities are present. Few benign-appearing calcifications are noted. No significant change from the prior exam. us Page Ge MD MAMMO Final Res ult * BONE DENSITY/DEXA (12/19/2021 11:20 AM CDT) Anatomical Region Laterality Modality Bone Mammography 12/19/2021 1:20 PM CDT Impressions 12/19/2021 1:21 PM CDT IMPRESSION: WHO Classification: osteopenia. FRAX Score: 1.9% chance of hip fracture and 25% chance of major osteoporotic fracture over the next 10 years Ordered By: PAGE GE Interpreted By: Kody Rodriguez MD, 12/19/2021 1:20 PM Narrative 12/19/2021 1:21 PM CDT Examination: Bone Density Axial Exam Date/Time: 12/19/2021 10:53 AM Reason For Exam: Postmenopausal Comparison: None Findings: DEXA bone densitometry The bone mineral density (BMD) was determined by dual-energy x-ray absorptiometry, the results are as follows: AP Lumbar Spine L1 through L4 BMD Patient (GM/SQCM): 0.967 T-Score (Standard deviations from young adult peak bone density): -0.7 Left femoral neck: BMD Patient (GM/SQCM): 0.719 T-Score (Standard deviations from young adult peak bone density): -1.2 Total left femur: BMD Patient (GM/SQCM): 0.937 T-Score (Standard deviations from young adult peak bone density): 0.0 Procedure Note Kody Rodriguez MD - 12/19/2021 Examination: Bone Density Axial Exam Date/Time: 12/19/2021 10:53 AM Reason For Exam: Postmenopausal Comparison: None Findings: DEXA bone densitometry The bone mineral density (BMD) was determined bydual-energy x-ray absorptiometry, the results are as follows: AP Lumbar Spine L1 through L4 BMD Patient (GM/SQCM): 0.967 T-Score (Standard deviations from young adult peak bonedensity): -0.7 Left femoral neck: BMD Patient (GM/SQCM): 0.719 T-Score (Standard deviations from young adult peak bonedensity): -1.2 Total left femur: BMD Patient (GM/SQCM): 0.937 T-Score (Standard deviations from young adult peak bonedensity): 0.0 IMPRESSION: WHO Classification: osteopenia. FRAX Score: 1.9% chance of hip fracture and 25% chance of majorosteoporotic fracture over the next 10 years Ordered By: PAGE GE Interpreted By: Kody Rodriguez MD, 12/19/2021 1:20 PM us Page Ge MD DEXA Final Res ult from Last 3 Months or Most Recently Relevant to Health Maintenance Insurance [facility] MEDICARE PART A Advance Directives * Full Code (Latest Code Status on File) Date Activated Date Inactivated Comments 10/21/2021 12:45 PM 10/22/2021 5:25 PM Care Teams Resident Programs Assistant Relationship Specialty Start Date End Date Charlette Madrigal MD [address] [place] [address] PCP - General INTERNAL MEDICINE 08/15/22
--- OUTSIDE RECORDS SUMMARY | 2025-01-24 02:19 | XMS_ITS | Encounter Summary ---
Author Organization [facility] Address 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
--- OUTSIDE RECORDS SUMMARY | 2025-01-24 02:19 | XMS_ITS | Continuity of Care Document ---
Author Organization [facility] Address [address] [facility] [address] [place] [address] Phone Care Team Providers Care Biofuels Plant Superintendent Name Role Phone Jose Alberto Max MD Unavailable Unavailable Allergies, Adverse Reactions, Alerts Substance Reaction Status Criticality latex Active No Information Medications Medication Instructions Dosage Effective Dates (start - stop) Status Comments bacitracin 500 unit/gram eye ointment apply by ophthalmic route both lower lids at bedtime (rub on lids) - Active amlodipine 5 mg tablet take 1 tablet by oral route every day 5 MG - Active atorvastatin 10 mg tablet take 1 tablet by oral route every day 10 MG - Active estradiol 0.05 mg/24 hr semiweekly transdermal patch apply 1 patch by transdermal route 2 times every week 1.00 patch - Active medroxyprogesterone 2.5 mg tablet take 2 tablet by oral route every day 5 MG - Active valacyclovir 500 mg tablet take 1 tablet by oral route 3 times every day 500 MG - Active Linzess 145 mcg capsule take 1 capsule b y oral route every day on an empty stomach at least 30 minutes before 1st meal of the day 145 MCG - Active Avenova 0.01 % topical spray - Active Procedures Procedure Date FUNDUS PHOTOGRAPHY OFFICE/OUTPATIENT VISIT, EST POSTOP FOLLOW-UP VISIT POSTOP FOLLOW-UP VISIT CATARACT SURG W/IOL, 1 STAGE Multifocal =2.75 +3.25 POSTOP FOLLOW-UP VISIT POSTOP FOLLOW-UP VISIT CATARACT SURG W/IOL, 1 STAGE Multifocal =2.75 +3.25 OPHTHALMIC BIOMETRY FUNDUS PHOTOGRAPHY OFFICE/OUTPATIENT VISIT, [facility] OPHTHALMIC BIOMETRY SMART DROPS BOTH EYES Advance Directives Directive Yes / No Effective Date File Name No Information Encounters Encounter Description Practice Location Reason(s) For Visit Diagnoses Date Provider Providers Copied on Encounter [facility], [address] [place] [address], [id number], tel:[phone] [facility] No Information 3 Faizan Abrams. [address] [place] [address], [id number] , . [phone] Referring Provider: Jose Alberto Max, [address] [place] [address], [id number] . tel:[phone] OFFICE/OUTPA TIENT VISIT, [facility], [address] [place] [address], [place], [place], [id number], tel:[phone] [facility] blurry vision (chief complaint) Presence of pseudophakiaVitr eous degeneration, bilateral 3 Faizan Abrams. [address] [place] [address], [id number] , [place]. [phone] Referring Provider: Jose Alberto Max, [address] [place] [address], [id number] . tel:[phone] [facility], [address] [place] [address], [id number], tel:[phone] [facility] same day PO OD/2 week PO OS (chief complaint) Encounter for other specified surgical aftercare 3 Ambrose Kohler. [address] [place] [address], [id number] , [place]. tel: [phone] Referring Provider: [address], [place], [address]. tel:[phone] [facility], [address] [place] [address], [id number], tel:[phone] [address] [place] [address] [facility] No Information 3 Faizan Abrams. [address] [place] [address], [id number] , [place]. tel: [phone] Referring Provider: [address], [place], [address]. tel:[phone] [facility], [address] [place] [address], [id number], [place] tel:[phone] [address] [place] [address] [facility] No Information 3 [facility] Jose Alberto. [address] [place] [address], [id number] , [place]. tel: [phone] Referring Provider: [address], [place], [address]. tel:[phone] [facility], [address] [place] [address], [id number], [place] [phone] [address] [place] [address] [facility] same day PO OS (chief complaint) Encounter for other specified surgical aftercare 3 Ambrose Kohler. [address] [place] [address], [id number] , [place]. tel: [phone] Referring Provider: [address], [place], [address]. tel:[phone] [facility], [address] [place] [address], [id number], [place] [phone] [address] [place] [address] [facility] No Information 3 Faizan Abrams. [address] [place] [address], [id number] , . tel:[phone] Referring Provider: [address], [place], [address]. tel:[phone] [facility], [address] [place] [address], [id number], tel:[phone] [address] [place] [address] [facility] No Information 3 Faizan Abrams. [address] [place] [address], [id number] , . tel:[phone] Referring Provider: [address], [place], [address]. tel:[phone] OFFICE/OUTPA TIENT VISIT, [facility], [address] [place] [address], [address] [place] [address], [phone] [facility] blurry vision (chief complaint) glare (chief complaint) Age-related nuclear cataract, bilateralBenign neoplasm of right choroid 3 Faizan Abrams. [address] [place] [address], [address] [place] [address] , . tel:[phone] Referring Provider: [address], [facility], [address]. tel:[phone] [facility], [address] [place] [address], [id number], tel:[phone] [facility] No Information 3 Faizan Abrams. [address] [place] [address], [id number] , . tel:[phone] Referring Provider: [address], [place], [address]. tel:[phone] Family History Family Member Type Diagnosis Age At Onset Mother Problem cataract Payers Payer name Insurance type Covered republican ID Shiv llanos(s) [facility] [id number] Social History Type Description Quantity Date Captured Comments Alcohol Use Details Unknown Caffeine Use Details Unknown Tobacco Use Status No Information Smoking Status No Information Sex Female Chief Complaint And Reason For Visit No Information Reason For Referral Reason For Referral No Information Plan Of Treatment Date Type Action Status Future Order: Radiology Order Ze iss Cirrus HD-OCT GAL ([id number]), Sent on: Sent Future Order: Radiology Order Ar gosGAL ([id number]), Sent on: Sent History Of Present Illness Encounter Date Complaint History Of Prese nt Illness blurry vision The 68 year old female presents for evaluation of blurry vision in the right eye and left eye. for the last few months she has noticed that she is experiencing blurry vision, states that she has PVD in both her eyes, and that it is more bothersome when reading at her computer same day PO OD/2 week PO OS The 67 year old female presents for evaluation of same day PO OD/2 week PO OS using smart drops OU last used this am same day PO OS The 67 year old female presents for evaluation of same day PO OS, left eye is comfortable Using smart drops 3 x d OS last used this am blurry vision The 67 year old female presents for evaluation of blurry vision, corrected and uncorrected distance and near. Pt wears progressive lenses, gradual progression visual decrease over two years, near > distance. She says distance vision is hindered mostly while driving at night. Small print, depth perception, and fine precision work cause difficulty. Referred by Dr. 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 Functional Status Date Functional Assessmen t No Information Instructions Date Instruction Additional Infor wil Impression/Plan Related to Prese nce of pseudophakia Impression/Plan Related to Vitre ous degeneration, bilateral Return to referring OD for co-management post-op care(xfer of care) as of tomorrow. call if any problems. 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
--- OUTSIDE RECORDS SUMMARY | 2025-01-24 02:19 | XMS_ITS | Encounter Summary ---
Author Organization [facility] Address [address] [place] [address] Care Team Providers Care Manager Of Quality Name Role Phone Charlette Madrigal MD Primary Care Provider [phone] Page Ge MD Unavailable [phone] Elif Cooper MA Unavailable [phone] Shawn Patel MD Unavailable [phone] Lux Valiente OD Unavailable [phone] Jose Alberto Max MD Unavailable [phone] Reason for Visit * Reason Onset Date Comments Medical Question/Miscellaneous 12/29/2024 Encounter Details Date Type Department Care Team ([facility] Contact Info) Description 12/29/2024 Telephone [facility] Primary Care [address] [place] [phone] Charlette Madrigal MD [facility] [address] Medical Question/Miscellaneous Social History Tobacco Use Types Packs/Day Years [...] more points, staff should administer the PHQ-9) 1 05/19/2024 PHQ-9 Answer Date Recorded PHQ-9 Total Score 1 05/19/2024 Personal Safety Answer Date Recorded Have you ever been in or are you currently in a harmful physical or emotional relationship or is someone making you feel afraid or unsafe? 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 Does message need to be routed? Yes-Action Needed documented in this encounter Plan of Treatment Not on file documented as of this encounter Visit Diagnoses Not on filedocumented in this encounter Care Teams Manager Of Quality Relationship Specialty Start Date End Date Charlette Madrigal MD [address] [place] [address] PCP - General Internal Medicine 07/04/22 Page Ge MD [address] [address] Referring Physician Gynecology 07/04/22 Elif Cooper MA [address] [facility] [place] [address] Audiology 07/04/22 Shawn Patel MD [address] [facility] [address] [place] [address] Referring Physician Dermatology 07/04/22 Lux Valiente, JAMES [address] [place] [address] Ophthalmology 07/04/22 Jose Alberto Max MD [address] [place] [address] Referring Physician Ophthalmology 12/09/22 documented as of this encounter
--- OUTSIDE RECORDS SUMMARY | 2025-01-24 02:19 | XMS_ITS | Clinical Summary ---
Author Organization [facility] Address [address] [place] [address] Phone Care Team Providers Care Double Surface Operator Name Role Phone Geetha John MD Primary Care Provider [phone] Allergies No known active allergies Medications ERGOCALCIFEROL, VITAMIN D2, (VITAMIN D ORAL) Take by mouth. 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 Gender Identity Not on file Sexual Orientation Not on file Last Filed Vital Signs Vital Sign Reading Time Taken Comments Blood Pressure 111/63 10/26/2010 2:12 PM CDT Pulse 90 10/26/2010 2:12 PM CDT Temperature 36.2 C (97.1 F) 10/26/2010 2:12 PM CDT Respiratory Rate 18 10/26/2010 2:12 PM CDT Oxygen Saturation 99% 10/26/2010 2:12 PM CDT Inhaled Oxygen Concentration - - Weight 60.5 kg (133 lb 6.4 oz) 10/26/2010 6:40 A M CDT Height 160 cm (5' 3) 10/25/2010 9:38 AM CDT Body Mass Index 23.63 10/25/2010 9:38 AM CDT Plan of Treatment Health Maintenance Due Date Last Done Comments DTAP/TDAP/TD VACCINES (1 - Tdap) 1974 BREAST CANCER SCREENING 1995 COLORECTAL SCREENING 01/28/2000 Colorectal Cancer Screening 01/28/2000 FIT-DNA Q 3 years 01/28/2000 FIT/FOBT Q 1 year 01/28/2000 Flex Sig/CT Colonography Q 5 years 01/28/2000 PNEUMOCOCCAL VACCINE 50+ YEARS (1 of 1 - PCV) 01/28/20 05 ZOSTER VACCINE (1 of 2) 2005 OSTEOPOROSIS SCREENING 01/28/2020 INFLUENZA VACCINE (#1) 2025 RSV VACCINE (60+ or ) (1 - 1-dose 75+ series) 2030 Medical Devices Implanted Type Area [employer] Forest[employer] Supervisor Device Identifier Shelf Expiration Date Model / Serial / Lot [employer] Calcium Phosphate [id number] Implanted:Qty : 1 on 10/26/2010 at [facility] Biological Right: Ear BIOMET [id number] - MARIA DEL CARMEN DIETZ 12/14/2011 [id number] / / [id number] Insurance [facility] [employer] Advance Directives For more information, please contact: [phone] * Full Code (Latest Code Status on File) Date Activated Date Inactivated Comments 10/26/2010 9:10 AM 10/26/2010 4:49 PM * Full Code Date Activated Date Inactivated Comments 10/26/2010 8:12 AM 10/26/2010 9:10 AM Care Teams Double Surface Operator Relationship Specialty Start Date End Date Geetha John MD [address] [address] PCP - General Internal Medicine 10/18/10
--- NOTE | 2025-01-24 07:23 | WPDHPUPDATE1 ---
History and Physical Update Update Date/Time: 01/24/25 07:23 History and Physical has been reviewed, including an updated exam of the patient. There are NO changes in the patient's condition. Risks, benefits, and alternatives have been discussed and questions answered. Patient agrees to proceed with procedure.
--- NOTE | 2025-01-24 07:24 | P.HP_ITS ---
History of Present Illness History of Present Illness Consent: Risks, benefits, and alternatives have been discussed and questions answered. Patient agrees to proceed with procedure. Chief complaint: post menopausal bleeding Narrative: Ayanna Jett is a 69 year old female with an episode of bleeding. She had blood clots followed by spotting when she took her pessary out. There were no lesions on exam. Pelvic ultrasound showed a slightly thickened endometrium. It was recommended to undergo D&C hysteroscopy. Risks of infection, bleeding, perforation, and possible pathology were reviewed. Patient voices understanding and agrees to proceed. Review of Systems Review of Systems: not repeated day of surgery; patient states no changes in status PMFSH Past Medical History Medical History (Updated 01/24/25 @ 07:27 by Page Ge MD) Status post hysteroscopy 2012 Hearing loss HTN (hypertension) Elevated cholesterol Rosacea (normal spontaneous vaginal delivery) Surgical History Surgical History (Updated 01/24/25 @ 07:27 by Page Ge MD) Status post laparoscopic cholecystectomy History of ear surgery X3 stapes Social History Social History Smoking status: Never smoker Alcohol intake: current Drinks per week: 1 Living arrangements: with family Additional living arrangements comments: [facility] Spiritual care concerns: No Meds Home Medications and Allergies Home Medications ?Medication ?Instructions ?Recorded ?Confirmed ?Type amlodipine 5 mg tablet 5 mg PO QAM 01/14/25 01/14/25 History atorvastatin 10 mg tablet 5 mg PO DAILY 01/14/25 01/14/25 History estradiol 0.5 mg tablet 0.5 mg PO DAILY 01/14/25 01/14/25 History medroxyprogesterone 2.5 mg tablet 2.5 mg PO DAILY 01/14/25 01/14/25 History omega-3 fatty acids 1,000 mg PO DAILY 01/14/25 01/14/25 History valacyclovir 500 mg tablet 500 mg PO DAILY 01/14/25 01/14/25 History Allergies Allergy/AdvReac Type Severity Reaction Status Date / Time latex Allergy Unknown UNKNOWN Verified 01/20/25 15:08 adhesive tape AdvReac REDNESS, Verified 01/20/25 15:08 SKIN IRRITATION tramadol AdvReac NAUSEA/VOMI Verified 01/20/25 15:08 TING Exam Const: General: healthy appearing and alert Orientation/consciousness: patient oriented x3 Resp: Effort & Inspection: normal respiratory effort : External Female Exam: normal external appearance Speculum Exam - Vagina: normal appearance of the vagina and normal vaginal discharge Speculum Exam - Cervix: normal appearance of the cervix Bimanual exam- vagina & uterus: uterine size normal and consistency normal Bimanual Exam- Adnexa, other: normal adnexae and No adnexal tenderness Neuro: General: patient oriented x3 Assessment and Plan Assessment and plan (1) Post-menopausal bleeding: Code(s): N95.0 - Postmenopausal bleeding Status: Acute Assessment and Plan: Plan to proceed with D&C hysteroscopy
--- NOTE | 2025-01-24 07:50 | P.PNAN_ITS ---
Anes - Initial Pre Proc Eval Procedure: Operation Date: 01/24/25 09:00 Proposed Procedures p Hysteroscopy Dilation and Curettage - Page Ge MD Date/Time: 01/24/25 07:50 Surgeon: Page Ge MD Pre Op Diagnosis: post menopausal bleeding Patient Data Age: 69 Gender: F Height: 1.6 m Weight: 64 kg Allergies Allergy/AdvReac Type Severity Reaction Status Date / Time latex Allergy Unknown UNKNOWN Verified 01/20/25 15:08 adhesive tape AdvReac REDNESS, Verified 01/20/25 15:08 SKIN IRRITATION tramadol AdvReac NAUSEA/VOMI Verified 01/20/25 15:08 TING Home Medications ?Medication ?Instructions ?Recorded ?Confirmed ?Type amlodipine 5 mg tablet 5 mg PO QAM 01/14/25 01/14/25 History atorvastatin 10 mg tablet 5 mg PO DAILY 01/14/25 01/14/25 History estradiol 0.5 mg tablet 0.5 mg PO DAILY 01/14/25 01/14/25 History medroxyprogesterone 2.5 mg tablet 2.5 mg PO DAILY 01/14/25 01/14/25 History omega-3 fatty acids 1,000 mg PO DAILY 01/14/25 01/14/25 History valacyclovir 500 mg tablet 500 mg PO DAILY 01/14/25 01/14/25 History Patient hx anesthesia problems: none Family hx anesthesia problems: none Results Review: All pre-operative results and documents have been reviewed as part of the pre- operative evaluation. [facility] Past Medical History Medical History (Updated 01/24/25 @ 07:27 by Page Ge MD) Status post hysteroscopy 2013 Hearing loss HTN (hypertension) Elevated cholesterol Rosacea (normal spontaneous vaginal delivery) Surgical History Surgical History (Updated 01/24/25 @ 07:27 by Page Ge MD) Status post laparoscopic cholecystectomy History of ear surgery X3 stapes Social History Social History Smoking status: Never smoker Alcohol intake: current Drinks per week: 1 Living arrangements: with family Additional living arrangements comments: [facility] Spiritual care concerns: No Anes - Eval Final PreProcedure Day of Procedure 01/24/25 07:50 Patient weight: normal Heart: regular rate and rhythm Lungs: clear to auscultation and normal air movement Airway: Mallampati scale class II Neurological: alert and oriented Last oral intake: >/= 8 hours ASA classification: II Emergent: no Anesthetic plan: proceed Anesthesia type and monitoring: general GIVS and standard monitoring Results Review: All pre-operative results and documents have been reviewed as part of the pre- operative evaluation. Informed Consent: The patient's anesthetic plan and its attendant risks and benefits were discussed with the patient/family/POA. Questions were solicited and answers provided to the satisfaction of the patient/family/POA.
[2025-01-24] MEDS: LACTATED RINGERS 1,000 ML 30 ML IV CONT ×2 (08:00→09:46)
[2025-01-24] MEDS: ACETAMINOPHEN 500 MG TABLET 1000 MG PO (08:34)
[2025-01-24] MEDS: KETOROLAC 15 MG/ML VIAL (*BKC) IV PUSH (09:00)
--- NOTE | 2025-01-24 09:07 | S_PTH ---
PATIENT: Ayanna Jett LOC: [facility] U#:[id number] AGE/SX: 69/F ROOM: RE01/24/[address]: Page Ge MD : 1955 BED: DIS: 01/24/2025 SPEC #: [id number] RECD: 01/24/25 10:26 STATUS: JAG REMax #: [id number] ILANA: 01/24/25 09:[address]: Page Ge DEPT: [facility] Surgical RECD BY: Mabel Roth ENTERED: 01/24/25 10:26 SP TYPE: Surgical OTHR DR: Charlette Madrigal, Tissues: A - Endometrial Curettings Procedures: Hematoxylin and Eosin Stain Gross and Microscopic Level 4
--- NOTE | 2025-01-24 09:09 | W.PM.PROC2 ---
Procedure Note - Detailed Date of Procedure 01/24/25 Pre-op Diagnosis post menopausal bleeding Post-op Diagnosis Same Procedure Performed D&C hysteroscopy Surgeon Page Ge MD Anesthesia MAC Findings Uterus sounds to 7cm. There is an anterior small cystic area with calcifications. Remainder of the endometrium appears atrophic. Description of Procedure The patient is taken to operating room and placed under anesthesia in the dorsal lithotomy position. She was prepped and draped in the usual sterile fashion. The bivalve speculum was placed in the vagina and the cervix grasped on the anterior lip with a tenaculum. The uterus is sounded to 7cm. The hysteroscope was placed and with the above-stated findings small Aveta resection device is placed. Under direct visualization the lesion was removed in its entirety. The hysteroscope was then removed and the sharp curette used to curette the endometrium until a good uterine cry was noted in all areas. Instruments were then removed. Sponge, needle, and instrument counts are correct per the OR staff. The patient was awakened from anesthesia and taken to recovery in stable condition. Estimated Blood Loss 5 Drains No Packing No Pathology Yes (Endometrial shavings and curettings) Complications No immediate complications Condition Stable Disposition PACU
--- NOTE | 2025-01-24 09:44 | SUR.PHASEII ---
DR. GARCIA CALLED RE: LOW BP; PATIENT ALERT, ORIENTED X3. 2ND LITER OF NS INFUSING. DR. GARCIA TALKING TO PATIENT NOW.
--- NOTE | 2025-01-24 09:49 | SUR.PHASEII ---
DR. GARCIA GAVE PATIENT GLYCOPYROLATE IV
[2025-01-24] MEDS: oxyCODONE HCL (*CRX) 2.5 MG TAB IR PO (10:09)
--- NOTE | 2025-01-24 10:10 | SUR.PHASEII ---
1000 DR[address] GARCIA CALLED RE: WHAT KIND OF PO PAIN MED TO GIVE PATIENT. HE SAID TO GIVE PATIENT CHOICE BETWEEN 2.5 MG AND 5 MG OXYCODONE; PATIENT CHOSE 2.5 MG. ASKED TO REMAIN ON STRETCHER A BIT LONGER. AWAKE, ALERT, ORIENTED X 3, TALKING TO .
== END 2025-01-24 11:24 | disposition home or self-care (01) ==
PROVIDERS: PCP Internal Medicine; Visit Provider Obstetrics & Gynecology Gynecology
PROC: 0U5B8ZZ Destruction of Endometrium, Via Natural or Artificial Opening Endoscopic (ICD-10-PCS; CPT 58563; principal; 2025-01-24 09:00)
DX: N84.0 Polyp of corpus uteri (principal); I10 Essential (primary) hypertension; E78.00 Pure hypercholesterolemia, unspecified; Z98.890 Other specified postprocedural states; Z90.49 Acquired absence of other specified parts of digestive tract
CPT/HCPCS: 58558; 88305; A9270; J1885; J2003; J2250; J2704; J3010; J7120